=== PATIENT | female | born 1950 | race Caucasian/White ===

== ENCOUNTER 2017-01-04 16:44 | Inpatient (IN) | payer MEDICARE, MEDICAID ==
[~2017-01-04] VITALS: Ht 162.6 cm; Wt 56.8 kg
[~2017-01-04 16:44] MED LIST: ARIP5TAB8 PO; ATEN25TA PO; LEVO50TA4 PO; LISI-661 PO
[2017-01-04 20:33] VITALS: BP 117/92
[2017-01-04] MEDS: ACETAMINOPHEN 325 MG TABLET PO PRN (21:47)
[2017-01-05 03:03] VITALS: BP 118/89
[2017-01-05] MEDS: HALOPERIDOL 5 MG TABLET PO PRN ×2 (03:08→09:36)
[2017-01-05] MEDS: LORazepam 2 MG TABLET PO PRN ×2 (03:08→10:07)
[2017-01-05] MEDS: LEVOTHYROXINE SODIUM 50 MCG TABLET PO SCH (06:16)
[2017-01-05 08:13] VITALS: BP 122/76
[2017-01-05 08:35] LABS: BASOPHILS % (AUTO) 0.5 % (0.0-2.0); HEMATOCRIT 36.1 % (36-46); HEMOGLOBIN 11.8 g/dL (12.0-16.0); LYMPHOCYTES # (AUTO) 1.2 K/uL (1.0-4.8); LYMPHOCYTES % (AUTO) 15.6 % (22.0-44.0); MEAN CORPUSCULAR HEMOGLOBIN 27.6 pg (26.0-34.0); MEAN CORPUSCULAR HGB CONC 32.8 G/dL (31.0-37.0); MEAN CORPUSCULAR VOLUME 84 fL (80-100); MONOCYTES # (AUTO) 0.4 K/uL (0.1-1.0); MONOCYTES % (AUTO) 5.1 % (2.0-9.0); NEUTROPHILS # (AUTO) 5.8 K/uL (1.8-7.7); NEUTROPHILS % (AUTO) 77.8 % (40.0-70.0); PLATELET COUNT (AUTO) 323 K/uL (150-450); RED BLOOD CELL COUNT(AUTO) 4.29 MIL/uL (4.00-5.20); RED CELL DISTRIBUTION WIDTH 15.7 % (11.5-14.5); WHITE BLOOD COUNT (AUTO) 7.5 K/uL (4.5-11.0)
[2017-01-05] MEDS: LISINOPRIL 10 MG TABLET PO SCH (08:42)
[2017-01-05] MEDS: ATENOLOL 25 MG TABLET PO SCH (09:10)
[2017-01-05 09:18] LABS: ALBUMIN 3.2 g/dL (3.4-5.0); BILIRUBIN,TOTAL 0.5 mg/dL (0.1-1.0); CALCIUM, TOTAL 8.9 mg/dL (8.8-10.5); CHOL/HDL RATIO 2.6 (3.9-5.7); CREATININE 1.38 mg/dL (0.60-1.30); THYROID STIMULATING HORMONE 41.81 uIU/mL (0.36-3.74); TOTAL PROTEIN, SERUM 7.5 g/dL (6.4-8.2)
[2017-01-05 11:35] LABS: HEMOGLOBIN A1C 6.6 % (4.5-6.2)
[2017-01-05 17:46] VITALS: BP 144/72
[2017-01-05] MEDS: ARIPiprazole 5 MG TABLET PO SCH (20:47)
[2017-01-06] MEDS: LEVOTHYROXINE SODIUM 50 MCG TABLET PO SCH (06:40)
[2017-01-06 08:05] VITALS: BP 145/81
[2017-01-06] MEDS: ATENOLOL 25 MG TABLET PO SCH (09:17)
[2017-01-06] MEDS: LISINOPRIL 10 MG TABLET PO SCH (09:17)
[2017-01-06 20:40] VITALS: BP 151/95
[2017-01-06] MEDS: ARIPiprazole 5 MG TABLET PO SCH (21:22)
[2017-01-07 04:30] VITALS: BP 147/98
[2017-01-07 05:18] LABS: APPEARANCE,URINE CLEAR (CLEAR); GLUCOSE, URINE (UA) NEGATIVE (NEGATIVE); KETONES,URINE NEGATIVE (NEGATIVE); LEUKOCYTE ESTERASE ,URINE NEGATIVE (NEGATIVE); OCCULT BLOOD,URINE NEGATIVE (NEGATIVE); PROTEIN,URINE NEGATIVE (NEGATIVE)
[2017-01-07 05:32] LABS: ADD UA MICROSCOPIC NO
[2017-01-07] MEDS: LEVOTHYROXINE SODIUM 50 MCG TABLET PO SCH (06:41)
[2017-01-07 08:15] VITALS: BP 127/87
[2017-01-07] MEDS: ATENOLOL 25 MG TABLET PO SCH (10:13)
[2017-01-07] MEDS: LISINOPRIL 10 MG TABLET PO SCH (10:13)
[2017-01-07 18:35] VITALS: BP 154/80
[2017-01-07] MEDS: ACETAMINOPHEN 325 MG TABLET PO PRN (18:35)
[2017-01-07] MEDS: ARIPiprazole 5 MG TABLET PO SCH (20:03)
[2017-01-08] MEDS: LEVOTHYROXINE SODIUM 50 MCG TABLET PO SCH (06:32)
[2017-01-08 08:05] VITALS: BP 181/107
[2017-01-08] MEDS: ATENOLOL 25 MG TABLET PO SCH (08:09)
[2017-01-08] MEDS: LISINOPRIL 10 MG TABLET PO SCH (08:09)
[2017-01-08 10:19] VITALS: BP 163/98
[2017-01-08] MEDS: ACETAMINOPHEN 325 MG TABLET PO PRN (11:11)
[2017-01-08] MEDS ORDERED: DiphenhydrAMINE HCL 50 MG/ML VIAL IM ONE (13:15)
[2017-01-08] MEDS ORDERED: LORazepam 2 MG/ML VIAL IM ONE (13:15)
[2017-01-08] MEDS: ARIPiprazole 10 MG TABLET PO SCH (21:00)
[2017-01-09] MEDS: LEVOTHYROXINE SODIUM 50 MCG TABLET PO SCH (06:34)
[2017-01-09 06:42] LABS: BASOPHILS % (AUTO) 0.4 % (0.0-2.0); EOSINOPHILS % (AUTO) 2.2 % (1.0-6.0); HEMOGLOBIN 12.5 g/dL (12.0-16.0); LYMPHOCYTES # (AUTO) 2.3 K/uL (1.0-4.8); LYMPHOCYTES % (AUTO) 28.3 % (22.0-44.0); MEAN CORPUSCULAR HEMOGLOBIN 27.5 pg (26.0-34.0); MEAN CORPUSCULAR HGB CONC 32.9 G/dL (31.0-37.0); MEAN CORPUSCULAR VOLUME 83 fL (80-100); MONOCYTES # (AUTO) 0.6 K/uL (0.1-1.0); MONOCYTES % (AUTO) 7.2 % (2.0-9.0); NEUTROPHILS # (AUTO) 5.1 K/uL (1.8-7.7); NEUTROPHILS % (AUTO) 61.9 % (40.0-70.0); PLATELET COUNT (AUTO) 284 K/uL (150-450); RED BLOOD CELL COUNT(AUTO) 4.55 MIL/uL (4.00-5.20); RED CELL DISTRIBUTION WIDTH 15.9 % (11.5-14.5); WHITE BLOOD COUNT (AUTO) 8.3 K/uL (4.5-11.0)
[2017-01-09 06:49] LABS: ALBUMIN 3.6 g/dL (3.4-5.0); BILIRUBIN,TOTAL 0.4 mg/dL (0.1-1.0); CALCIUM, TOTAL 9.4 mg/dL (8.8-10.5); CREATININE 1.27 mg/dL (0.60-1.30); POTASSIUM 4.5 mmol/L (3.5-5.1); TOTAL PROTEIN, SERUM 8.1 g/dL (6.4-8.2)
[2017-01-09] MEDS: ATENOLOL 25 MG TABLET PO SCH (09:31)
[2017-01-09] MEDS: LISINOPRIL 10 MG TABLET PO SCH (09:31)
[2017-01-09 16:30] VITALS: BP 114/71
[2017-01-09] MEDS: ACETAMINOPHEN 325 MG TABLET PO PRN (16:53)
[2017-01-09] MEDS: ARIPiprazole 10 MG TABLET PO SCH (21:15)
[2017-01-09] MEDS: ZOLPIDEM TARTRATE 10 MG TABLET PO PRN (22:21)
[2017-01-10 03:09] VITALS: BP 134/88
[2017-01-10] MEDS: LEVOTHYROXINE SODIUM 50 MCG TABLET PO SCH (06:46)
[2017-01-10 08:30] VITALS: BP 143/92
[2017-01-10] MEDS: ATENOLOL 25 MG TABLET PO SCH (09:01)
[2017-01-10] MEDS: LISINOPRIL 20 MG TABLET PO SCH (09:01)
[2017-01-10] MEDS: FERROUS SULFATE 325 MG EC TABLET PO SCH (12:30)
[2017-01-10] MEDS: ARIPiprazole 10 MG TABLET PO SCH (20:17)
[2017-01-11] MEDS: ZOLPIDEM TARTRATE 10 MG TABLET PO PRN (00:24)
[2017-01-11] MEDS: HALOPERIDOL 5 MG TABLET PO PRN ×2 (00:25→19:59)
[2017-01-11] MEDS: FERROUS SULFATE 325 MG EC TABLET PO SCH (06:56)
[2017-01-11] MEDS: LEVOTHYROXINE SODIUM 50 MCG TABLET PO SCH (06:56)
[2017-01-11] MEDS: LISINOPRIL 20 MG TABLET PO SCH (08:22)
[2017-01-11] MEDS: ATENOLOL 50 MG TABLET PO SCH (08:22)
[2017-01-11 08:54] VITALS: BP 127/71
[2017-01-11 14:21] VITALS: BP 148/88
[2017-01-11] MEDS: ACETAMINOPHEN 325 MG TABLET PO PRN (14:21)
[2017-01-11 16:00] VITALS: BP 139/81
[2017-01-11] MEDS: LORazepam 2 MG TABLET PO PRN (19:59)
[2017-01-11] MEDS: ARIPiprazole 10 MG TABLET PO SCH (20:03)
[2017-01-12 05:12] VITALS: BP 146/74
[2017-01-12] MEDS: HALOPERIDOL 5 MG TABLET PO PRN (05:39)
[2017-01-12] MEDS: LEVOTHYROXINE SODIUM 50 MCG TABLET PO SCH (06:56)
[2017-01-12] MEDS: FERROUS SULFATE 325 MG EC TABLET PO SCH (06:56)
[2017-01-12] MEDS: ATENOLOL 50 MG TABLET PO SCH (08:22)
[2017-01-12] MEDS: LISINOPRIL 20 MG TABLET PO SCH (08:22)
[2017-01-12 08:30] VITALS: BP 128/77
[2017-01-12 08:35] VITALS: BP 128/77
[2017-01-12] MEDS: ACETAMINOPHEN 325 MG TABLET PO PRN (08:35)
[2017-01-12] MEDS: DIVALPROEX SODIUM 500 MG ER TABLET PO SCH (20:36)
[2017-01-12] MEDS: ARIPiprazole 15 MG TABLET PO SCH (20:36)
[2017-01-13 00:15] VITALS: BP 124/79
[2017-01-13] MEDS: FERROUS SULFATE 325 MG EC TABLET PO SCH (06:40)
[2017-01-13] MEDS: LEVOTHYROXINE SODIUM 50 MCG TABLET PO SCH (06:40)
[2017-01-13 08:51] VITALS: BP 164/76
[2017-01-13] MEDS: ATENOLOL 50 MG TABLET PO SCH (09:04)
[2017-01-13] MEDS: LISINOPRIL 20 MG TABLET PO SCH (09:05)
[2017-01-13] MEDS: DIVALPROEX SODIUM 500 MG ER TABLET PO SCH ×2 (09:05→20:34)
[2017-01-13] MEDS ORDERED: LOPERAMIDE HCL 2 MG CAPSULE PO PRN ×2 (10:45→14:45)
[2017-01-13] MEDS: ACETAMINOPHEN 325 MG TABLET PO PRN (16:05)
[2017-01-13 16:07] VITALS: BP 110/58
[2017-01-13] MEDS: ARIPiprazole 15 MG TABLET PO SCH (20:34)
[2017-01-14 02:16] VITALS: BP 149/70
[2017-01-14] MEDS: ACETAMINOPHEN 325 MG TABLET PO PRN ×2 (02:16→16:31)
[2017-01-14] MEDS: LEVOTHYROXINE SODIUM 50 MCG TABLET PO SCH (06:50)
[2017-01-14] MEDS: FERROUS SULFATE 325 MG EC TABLET PO SCH (06:50)
[2017-01-14 06:57] LABS: CALCIUM, TOTAL 8.9 mg/dL (8.8-10.5); CREATININE 1.34 mg/dL (0.60-1.30); POTASSIUM 5.1 mmol/L (3.5-5.1)
[2017-01-14] MEDS: DIVALPROEX SODIUM 500 MG ER TABLET PO SCH (09:09)
[2017-01-14] MEDS: LISINOPRIL 20 MG TABLET PO SCH (09:09)
[2017-01-14] MEDS: ATENOLOL 50 MG TABLET PO SCH (09:09)
[2017-01-14 09:46] VITALS: BP 163/74
[2017-01-14] MEDS ORDERED: DIVA500T52 PO (13:29)
[2017-01-14] MEDS ORDERED: FERR-89 PO (13:30)
[2017-01-14] MEDS ORDERED: LISI-662 PO (13:30)
[2017-01-14] MEDS ORDERED: ARIP15TA2 PO (13:31)
[2017-01-14 16:39] VITALS: BP_SYST 122; BP_SYST 163; BP_DIAS 74; BP_DIAS 82
== END 2017-01-14 17:10 | disposition home or self-care (01) | DRG 885 ==
LOC: B3A 20:13 → 3EI 01-05 16:00
DX: F20.0 Paranoid schizophrenia (principal); N18.3 Chronic kidney disease, stage 3 (moderate); F03.90 Unspecified dementia, unspecified severity, without behavioral disturbance, psychotic disturbance, mood disturbance, and anxiety; N31.9 Neuromuscular dysfunction of bladder, unspecified; D64.9 Anemia, unspecified; E03.9 Hypothyroidism, unspecified; I12.9 Hypertensive chronic kidney disease with stage 1 through stage 4 chronic kidney disease, or unspecified chronic kidney disease; Z91.012 Allergy to eggs; Z90.49 Acquired absence of other specified parts of digestive tract; Z88.0 Allergy status to penicillin; Z59.0 Homelessness
CPT/HCPCS: 76770; 80307; 82306; 82728; 83036; 83540; 83550; 84439; 84443; 87081; J1200; J2060; J3230

== ENCOUNTER 2017-02-22 10:34 | Inpatient (IN) | payer MEDICARE, MEDICAID ==
[~2017-02-22] VITALS: Ht 157.5 cm; Wt 56.0 kg
[~2017-02-22 10:34] MED LIST changes: +ARIP15TA2 PO; -ARIP5TAB8 PO; +DIVA500T52 PO; +FERR-89 PO; -LISI-661 PO; +LISI-662 PO
[2017-02-22 13:38] VITALS: BP 148/103
[2017-02-22] MEDS ORDERED: HALOPERIDOL 5 MG TABLET PO PRN (14:00)
[2017-02-22] MEDS ORDERED: ZOLPIDEM TARTRATE 10 MG TABLET PO PRN (14:00)
[2017-02-22] MEDS ORDERED: LORazepam 2 MG TABLET PO PRN (14:00)
[2017-02-22 14:30] VITALS: BP 164/99
[2017-02-22] MEDS ORDERED: PNEUMOCOCCAL VACCINE POLYVALENT 0.5 ML VIAL [PPSV23] IM ONE (15:00)
[2017-02-22] MEDS ORDERED: INFLUENZA VIRUS VACCINE QVS 2017-18 (3YR+)/PF 60 MCG/0.5 ML SYRINGE IM ONE (15:00)
[2017-02-22] MEDS: ATENOLOL 50 MG TABLET PO SCH (17:30)
[2017-02-22 17:50] VITALS: BP 151/100
[2017-02-22] MEDS: LISINOPRIL 20 MG TABLET PO SCH (17:56)
[2017-02-22 18:56] VITALS: BP 116/76
[2017-02-22] MEDS: ARIPiprazole 10 MG TABLET PO SCH (21:00)
[2017-02-22] MEDS ORDERED: ARIPiprazole 15 MG TABLET PO SCH (21:00)
[2017-02-22] MEDS: DIVALPROEX SODIUM 500 MG ER TABLET PO SCH (21:00)
[2017-02-23] MEDS ORDERED: LEVOTHYROXINE SODIUM 50 MCG TABLET PO SCH (06:30)
[2017-02-23] MEDS: FERROUS SULFATE 325 MG EC TABLET PO SCH (07:21)
[2017-02-23 08:13] LABS: HEMOGLOBIN A1C 5.8 % (4.5-6.2)
[2017-02-23 08:15] LABS: BASOPHILS % (AUTO) 0.2 % (0.0-2.0); EOSINOPHILS % (AUTO) 0.7 % (1.0-6.0); HEMOGLOBIN 13.2 g/dL (12.0-16.0); LYMPHOCYTES # (AUTO) 1.1 K/uL (1.0-4.8); LYMPHOCYTES % (AUTO) 13.1 % (22.0-44.0); MEAN CORPUSCULAR HEMOGLOBIN 28.6 pg (26.0-34.0); MEAN CORPUSCULAR HGB CONC 33.7 G/dL (31.0-37.0); MEAN CORPUSCULAR VOLUME 85 fL (80-100); MONOCYTES # (AUTO) 0.3 K/uL (0.1-1.0); MONOCYTES % (AUTO) 3.2 % (2.0-9.0); NEUTROPHILS # (AUTO) 6.9 K/uL (1.8-7.7); NEUTROPHILS % (AUTO) 82.8 % (40.0-70.0); PLATELET COUNT (AUTO) 266 K/uL (150-450); RED BLOOD CELL COUNT(AUTO) 4.59 MIL/uL (4.00-5.20); WHITE BLOOD COUNT (AUTO) 8.4 K/uL (4.5-11.0)
[2017-02-23 08:46] LABS: ALANINE AMINOTRANSFERASE 25 U/L (12-78); ALBUMIN 3.3 g/dL (3.4-5.0); ANION GAP 6 mmol/L (8-16); ASPARTATE AMINOTRANSFERASE 32 U/L (15-37); BILIRUBIN,TOTAL 0.5 mg/dL (0.1-1.0); CALCIUM, TOTAL 9.2 mg/dL (8.8-10.5); CARBON DIOXIDE 28 mmol/L (22-29); CHLORIDE 107 mmol/L (98-107); CHOL/HDL RATIO 2.1 (3.9-5.7); CREATININE 1.25 mg/dL (0.60-1.30); GLOMERULAR FILTR. RATE CALC 43 mL/min (>60); POTASSIUM 4.3 mmol/L (3.5-5.1); SODIUM SERUM 141 mmol/L (136-145); THYROID STIMULATING HORMONE 25.97 uIU/mL (0.36-3.74); TOTAL PROTEIN, SERUM 6.7 g/dL (6.4-8.2); UREA NITROGEN, BLOOD 24 mg/dL (7-18)
[2017-02-23 08:50] LABS: VALPROIC ACID < 3 mcg/mL (50-100)
[2017-02-23] MEDS: ATENOLOL 50 MG TABLET PO SCH (09:00)
[2017-02-23] MEDS: DIVALPROEX SODIUM 500 MG ER TABLET PO SCH ×2 (09:23→20:41)
[2017-02-23] MEDS: LISINOPRIL 20 MG TABLET PO SCH (09:24)
[2017-02-23 17:21] VITALS: BP 138/88
[2017-02-23] MEDS: ARIPiprazole 10 MG TABLET PO SCH (20:40)
[2017-02-24] MEDS ORDERED: LEVOTHYROXINE SODIUM 25 MCG TABLET PO SCH (06:30)
[2017-02-24] MEDS: FERROUS SULFATE 325 MG EC TABLET PO SCH (06:40)
[2017-02-24 06:44] VITALS: BP 127/69
[2017-02-24 08:19] VITALS: BP 155/76
[2017-02-24] MEDS: DIVALPROEX SODIUM 500 MG ER TABLET PO SCH ×2 (08:24→20:15)
[2017-02-24] MEDS: LISINOPRIL 20 MG TABLET PO SCH (08:24)
[2017-02-24] MEDS: ATENOLOL 50 MG TABLET PO SCH (08:24)
[2017-02-24 16:04] VITALS: BP 132/86
[2017-02-24] MEDS: ARIPiprazole 10 MG TABLET PO SCH (20:15)
[2017-02-25] MEDS: LEVOTHYROXINE SODIUM 50 MCG TABLET PO SCH (06:48)
[2017-02-25] MEDS: FERROUS SULFATE 325 MG EC TABLET PO SCH (06:48)
[2017-02-25] MEDS: ATENOLOL 50 MG TABLET PO SCH (08:23)
[2017-02-25] MEDS: LISINOPRIL 20 MG TABLET PO SCH (08:23)
[2017-02-25] MEDS: DIVALPROEX SODIUM 500 MG ER TABLET PO SCH ×2 (08:23→20:10)
[2017-02-25 08:28] VITALS: BP 155/92
[2017-02-25 16:00] VITALS: BP 138/87
[2017-02-25] MEDS: ARIPiprazole 10 MG TABLET PO SCH (20:10)
[2017-02-26 06:42] VITALS: BP 148/88
[2017-02-26] MEDS: LEVOTHYROXINE SODIUM 50 MCG TABLET PO SCH (06:45)
[2017-02-26] MEDS: FERROUS SULFATE 325 MG EC TABLET PO SCH (06:45)
[2017-02-26] MEDS: ATENOLOL 50 MG TABLET PO SCH (08:40)
[2017-02-26] MEDS: LISINOPRIL 20 MG TABLET PO SCH (08:40)
[2017-02-26] MEDS: DIVALPROEX SODIUM 500 MG ER TABLET PO SCH ×2 (08:40→20:36)
[2017-02-26 16:15] VITALS: BP 147/89
[2017-02-26] MEDS: ARIPiprazole 10 MG TABLET PO SCH (20:36)
[2017-02-27 04:44] VITALS: BP 138/88
[2017-02-27] MEDS: FERROUS SULFATE 325 MG EC TABLET PO SCH (06:25)
[2017-02-27] MEDS: LEVOTHYROXINE SODIUM 50 MCG TABLET PO SCH (06:25)
[2017-02-27 08:30] VITALS: BP 124/76
[2017-02-27] MEDS: ATENOLOL 50 MG TABLET PO SCH (08:37)
[2017-02-27] MEDS: LISINOPRIL 20 MG TABLET PO SCH (08:37)
[2017-02-27] MEDS: DIVALPROEX SODIUM 500 MG ER TABLET PO SCH ×2 (08:37→20:29)
[2017-02-27 16:55] VITALS: BP 131/82
[2017-02-27] MEDS: ARIPiprazole 10 MG TABLET PO SCH (20:29)
[2017-02-28 05:10] VITALS: BP 133/68
[2017-02-28] MEDS: LEVOTHYROXINE SODIUM 50 MCG TABLET PO SCH (06:21)
[2017-02-28] MEDS: FERROUS SULFATE 325 MG EC TABLET PO SCH (06:21)
[2017-02-28] MEDS: DIVALPROEX SODIUM 500 MG ER TABLET PO SCH ×2 (08:31→20:20)
[2017-02-28] MEDS: LISINOPRIL 20 MG TABLET PO SCH (08:31)
[2017-02-28] MEDS: ATENOLOL 50 MG TABLET PO SCH (08:32)
[2017-02-28 08:47] VITALS: BP 141/81
[2017-02-28 08:53] LABS: THYROID STIMULATING HORMONE 18.83 uIU/mL (0.36-3.74)
[2017-02-28 16:30] VITALS: BP 117/69
[2017-02-28] MEDS: ARIPiprazole 10 MG TABLET PO SCH (20:20)
[2017-03-01 03:04] VITALS: BP 114/73
[2017-03-01] MEDS: LEVOTHYROXINE SODIUM 50 MCG TABLET PO SCH (06:57)
[2017-03-01] MEDS: FERROUS SULFATE 325 MG EC TABLET PO SCH (06:57)
[2017-03-01 08:13] VITALS: BP 139/85
[2017-03-01] MEDS: DIVALPROEX SODIUM 500 MG ER TABLET PO SCH ×2 (09:47→20:12)
[2017-03-01] MEDS: LISINOPRIL 20 MG TABLET PO SCH (09:47)
[2017-03-01] MEDS: ATENOLOL 50 MG TABLET PO SCH (09:47)
[2017-03-01 16:00] VITALS: BP 120/74
[2017-03-01] MEDS: ARIPiprazole 10 MG TABLET PO SCH (16:07)
[2017-03-02 01:17] VITALS: BP 117/63
[2017-03-02] MEDS: LEVOTHYROXINE SODIUM 50 MCG TABLET PO SCH (06:13)
[2017-03-02] MEDS: FERROUS SULFATE 325 MG EC TABLET PO SCH (06:39)
[2017-03-02] MEDS: ATENOLOL 50 MG TABLET PO SCH (08:21)
[2017-03-02] MEDS: LISINOPRIL 20 MG TABLET PO SCH (08:21)
[2017-03-02] MEDS: ARIPiprazole 10 MG TABLET PO SCH ×2 (08:21→16:17)
[2017-03-02] MEDS: DIVALPROEX SODIUM 500 MG ER TABLET PO SCH ×2 (08:21→20:33)
[2017-03-02 08:55] VITALS: BP 152/78
[2017-03-02 13:28] VITALS: BP 130/88
[2017-03-02 16:05] VITALS: BP 110/61
[2017-03-03 06:27] VITALS: BP 138/91
[2017-03-03] MEDS: FERROUS SULFATE 325 MG EC TABLET PO SCH (06:33)
[2017-03-03] MEDS: LEVOTHYROXINE SODIUM 50 MCG TABLET PO SCH (06:33)
[2017-03-03] MEDS: ATENOLOL 50 MG TABLET PO SCH (08:19)
[2017-03-03] MEDS: LISINOPRIL 20 MG TABLET PO SCH (08:19)
[2017-03-03] MEDS: DIVALPROEX SODIUM 500 MG ER TABLET PO SCH ×2 (08:19→20:18)
[2017-03-03] MEDS: ARIPiprazole 10 MG TABLET PO SCH ×2 (08:19→16:10)
[2017-03-03 08:34] VITALS: BP 155/111
[2017-03-03 09:45] VITALS: BP 139/73
[2017-03-03 16:07] VITALS: BP 136/74
[2017-03-03 18:55] VITALS: BP 138/74
[2017-03-04] MEDS: LEVOTHYROXINE SODIUM 50 MCG TABLET PO SCH (06:33)
[2017-03-04 06:34] VITALS: BP 135/72
[2017-03-04] MEDS: FERROUS SULFATE 325 MG EC TABLET PO SCH (07:15)
[2017-03-04 08:02] VITALS: BP 151/85
[2017-03-04] MEDS: ARIPiprazole 10 MG TABLET PO SCH (08:25)
[2017-03-04] MEDS: ATENOLOL 50 MG TABLET PO SCH (08:26)
[2017-03-04] MEDS: DIVALPROEX SODIUM 500 MG ER TABLET PO SCH (08:26)
[2017-03-04] MEDS: LISINOPRIL 20 MG TABLET PO SCH (08:26)
[2017-03-04] MEDS ORDERED: ARIP10TA8 PO (10:05)
[2017-03-04 10:42] VITALS: BP 116/65
== END 2017-03-04 11:30 | disposition home or self-care (01) | DRG 885 ==
LOC: B3A 14:08
DX: F25.0 Schizoaffective disorder, bipolar type (principal); Z59.0 Homelessness; D64.9 Anemia, unspecified; I10 Essential (primary) hypertension; Z79.899 Other long term (current) drug therapy; Z81.1 Family history of alcohol abuse and dependence; F12.90 Cannabis use, unspecified, uncomplicated; Z90.49 Acquired absence of other specified parts of digestive tract; Z83.6 Family history of other diseases of the respiratory system; E03.9 Hypothyroidism, unspecified; Z88.0 Allergy status to penicillin; Z28.21 Immunization not carried out because of patient refusal
CPT/HCPCS: 83036; 84439; 84443; 84481

== ENCOUNTER 2019-03-09 18:30 | Inpatient (IN) | payer MEDICARE, MEDICAID ==
[~2019-03-09] VITALS: Ht 157.5 cm; Wt 56.7 kg
[~2019-03-09 18:30] MED LIST changes: +ARIP10TA8 PO; -ARIP15TA2 PO
[2019-03-09] MEDS ORDERED: ZOLPIDEM TARTRATE 10 MG TABLET PO PRN (20:30)
[2019-03-09] MEDS ORDERED: LORazepam 2 MG TABLET PO PRN (20:30)
[2019-03-09] MEDS ORDERED: ChlorproMAZINE HCL 10 MG TABLET PO PRN (20:30)
[2019-03-09 21:15] VITALS: BP 175/95
[2019-03-10 05:48] VITALS: BP 132/74
[2019-03-10 08:30] VITALS: BP 147/88
[2019-03-10] MEDS: AmLODIPine BESYLATE 10 MG TABLET PO SCH (09:04)
[2019-03-10 11:06] LABS: APPEARANCE,URINE CLEAR (CLEAR); BILIRUBIN,URINE NEGATIVE (NEGATIVE); GLUCOSE, URINE (UA) NEGATIVE (NEGATIVE); KETONES,URINE NEGATIVE (NEGATIVE); LEUKOCYTE ESTERASE ,URINE NEGATIVE (NEGATIVE); NITRATE,URINE NEGATIVE (NEGATIVE); OCCULT BLOOD,URINE NEGATIVE (NEGATIVE); UROBILINOGEN,URINE 0.2 mg/dL (<=1.0)
[2019-03-10 11:12] LABS: AMPHET/METH SCREEN,URINE NEGATIVE (NEGATIVE); BARBITURATE SCREEN, URINE NEGATIVE (NEGATIVE); BENZODIAZEPINES SCREEN,URINE NEGATIVE (NEGATIVE); CANNABINOID SCREEN,URINE NEGATIVE (NEGATIVE); COCAINE SCREEN,URINE NEGATIVE (NEGATIVE); METHADONE SCREEN, URINE NEGATIVE (NEGATIVE); OPIATE SCREEN,URINE NEGATIVE (NEGATIVE); PHENCYCLIDINE SCREEN,URINE NEGATIVE (NEGATIVE)
[2019-03-10 11:33] LABS: PROTEIN,URINE NEGATIVE (NEGATIVE)
[2019-03-10] MEDS ORDERED: MAG HYDROX/AL HYDROX/SIMETH ES 30 ML SUSPENSION UDCUP PO PRN (16:00)
[2019-03-10] MEDS ORDERED: ALBUTEROL SULFATE HFA 90 MCG/PUFF 8 GM INHALER IH PRN (16:00)
[2019-03-10] MEDS ORDERED: IBUPROFEN 600 MG TABLET PO PRN (16:00)
[2019-03-10] MEDS ORDERED: CloNIDine HCL 0.1 MG TABLET PO PRN (16:00)
[2019-03-10] MEDS ORDERED: PETROLATUM,WHITE 28 GM JELLY TP PRN (16:00)
[2019-03-10] MEDS ORDERED: DOCUSATE SODIUM 100 MG CAPSULE PO PRN (16:00)
[2019-03-10] MEDS ORDERED: MAGNESIUM HYDROXIDE SUSPENSION 30 ML UDCUP PO PRN (16:00)
[2019-03-10] MEDS ORDERED: BACITRACIN 28.4 GM OINTMENT TP PRN (16:00)
[2019-03-10] MEDS ORDERED: OMEPRAZOLE 20 MG CAPSULE PO PRN (16:00)
[2019-03-10] MEDS ORDERED: LOPERAMIDE HCL 2 MG CAPSULE PO PRN (16:00)
[2019-03-10] MEDS ORDERED: ONDANSETRON HCL 4 MG TABLET PO PRN (16:00)
[2019-03-10] MEDS ORDERED: ACETAMINOPHEN 325 MG TABLET PO PRN (16:00)
[2019-03-10] MEDS ORDERED: BENZOCAINE/MENTHOL LOZENGE MM PRN (16:00)
[2019-03-10] MEDS: ARIPiprazole 10 MG TABLET PO SCH (18:30)
[2019-03-10] MEDS: DIVALPROEX SODIUM 500 MG DR TABLET PO SCH (21:00)
[2019-03-11 06:58] VITALS: BP 146/95
[2019-03-11] MEDS: LEVOTHYROXINE SODIUM 50 MCG TABLET PO SCH (07:07)
[2019-03-11 08:30] VITALS: BP 155/84
[2019-03-11] MEDS: ARIPiprazole 10 MG TABLET PO SCH ×2 (09:15→17:11)
[2019-03-11] MEDS: LISINOPRIL 20 MG TABLET PO SCH (09:15)
[2019-03-11] MEDS: DIVALPROEX SODIUM 500 MG DR TABLET PO SCH ×2 (09:15→21:33)
[2019-03-11] MEDS: AmLODIPine BESYLATE 10 MG TABLET PO SCH (09:15)
[2019-03-11] MEDS: ATENOLOL 25 MG TABLET PO SCH (09:16)
[2019-03-11 21:18] VITALS: BP 130/69
[2019-03-12 03:23] VITALS: BP 136/76
[2019-03-12] MEDS: LEVOTHYROXINE SODIUM 50 MCG TABLET PO SCH (06:28)
[2019-03-12] MEDS: ARIPiprazole 10 MG TABLET PO SCH ×2 (08:01→16:20)
[2019-03-12] MEDS: DIVALPROEX SODIUM 500 MG DR TABLET PO SCH ×2 (08:18→21:13)
[2019-03-12] MEDS: ATENOLOL 25 MG TABLET PO SCH (08:24)
[2019-03-12] MEDS: AmLODIPine BESYLATE 10 MG TABLET PO SCH (08:24)
[2019-03-12] MEDS: LISINOPRIL 20 MG TABLET PO SCH (08:24)
[2019-03-12 11:09] VITALS: BP 130/78
[2019-03-12 15:50] VITALS: BP 144/69
[2019-03-12 16:00] VITALS: BP 117/71
[2019-03-13] MEDS: LEVOTHYROXINE SODIUM 50 MCG TABLET PO SCH (06:49)
[2019-03-13] MEDS: ARIPiprazole 10 MG TABLET PO SCH (08:18)
[2019-03-13] MEDS: AmLODIPine BESYLATE 10 MG TABLET PO SCH (08:19)
[2019-03-13] MEDS: DIVALPROEX SODIUM 500 MG DR TABLET PO SCH (08:19)
[2019-03-13] MEDS: ATENOLOL 25 MG TABLET PO SCH (08:19)
[2019-03-13] MEDS: LISINOPRIL 20 MG TABLET PO SCH (08:19)
[2019-03-13 08:48] VITALS: BP 150/92
[2019-03-13] MEDS ORDERED: AMLO10TA7 PO (12:28)
== END 2019-03-13 15:20 | disposition home or self-care (01) | DRG 885 ==
LOC: 3EX 18:30
PROVIDERS: ADMIT Psychiatry & Neurology Psychiatry; ATTEND Psychiatry & Neurology Psychiatry
DX: F25.9 Schizoaffective disorder, unspecified (principal); E03.9 Hypothyroidism, unspecified; E32.8 Other diseases of thymus; E78.5 Hyperlipidemia, unspecified; F12.90 Cannabis use, unspecified, uncomplicated; F17.200 Nicotine dependence, unspecified, uncomplicated; N28.9 Disorder of kidney and ureter, unspecified; F41.9 Anxiety disorder, unspecified; G47.00 Insomnia, unspecified; I10 Essential (primary) hypertension; Z59.0 Homelessness; Z79.899 Other long term (current) drug therapy; Z90.49 Acquired absence of other specified parts of digestive tract; Z88.0 Allergy status to penicillin; Z88.8 Allergy status to other drugs, medicaments and biological substances; Z91.012 Allergy to eggs; Z71.51 Drug abuse counseling and surveillance of drug abuser
CPT/HCPCS: 80307; 87081; G0378